=== PATIENT | female | born 1955 | race Caucasian/White ===

== ENCOUNTER → 2020-11-27 17:21 | Outpatient (CLI) | payer OTHER, SELFPAY ==
--- NOTE | 2020-11-27 | DI.MRI.S_ITS ---
PROCEDURE: MR ANKLE RT WO CON INDICATIONS: PAIN IN RT ANKKLE AND JOINTS OF RT FOOT TECHNIQUE: Noncontrast sagittal T1 spin echo and T2 fast spin echo with fat saturation, axial proton density fast spin echo and T2 fast spin echo with fat saturation, coronal T1 spin echo and T2 fast spin echo with fat saturation through the ankle/hindfoot. COMPARISON: None. FINDINGS: Image quality: Diagnostic. Bones and joints: There is a mildly comminuted fracture of the calcaneus along the subtalar joint, with mild impaction along the posterior facet. There is associated mild bone marrow edema. The fracture extends to the subtalar joint as well as the calcaneocuboid articulation. Remaining visualized osseous structures appear intact. 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 There is a small tibiotalar joint effusion. Medial structures: The posterior tibialis, flexor digitorum longus, and flexor hallucis longus tendons are intact with a small amount of tenosynovial fluid. The posterior tibial neurovascular bundle appears normal within the tarsal tunnel, without extrinsic mass effect. The deltoid and spring ligament components appear intact. The Lateral structures: The anterior talofibular, calcaneofibular, and posterior talofibular ligaments appear mildly thickened compatible sequelae of mild to moderate sprains.. More superiorly, the anterior and posterior tibiofibular ligaments appear intact, as is the intermalleolar ligament. The tibiofibular syndesmosis is normal in width at 2 mm or less. The peroneus longus and brevis tendons demonstrate normal location and morphology. Adjacent bony peroneal tubercle and retrotrochlear prominence are normal in size. The sinus tarsi demonstrates normal fatty signal, without edema, fibrosis, or cyst formation. The calcaneonavicular and calcaneocuboid components of the bifurcate ligament appear intact. The dorsal calcaneocuboid ligament also appears intact. Anterior structures: The tibialis anterior, extensor hallucis longus, and extensor digitorum longus tendons appear intact. The dorsal talonavicular ligament appears intact. Posterior and plantar structures: Achilles tendon is intact. Medial and lateral bands of the plantar fascia are of normal thickness with mild associated edema along the plantar soft tissues proximally. No abductor digiti quinti muscle atrophy to suggest Brown neuropathy. IMPRESSION: 1. Mildly comminuted fracture of the calcaneus with mild impaction along the subtalar joint. Fracture also extends to the calcaneocuboid articulation. 2. Sequelae of prior mild to moderate sprains of the talofibular and calcaneofibular ligaments as described. 3. Small tibiotalar joint effusion. 4. 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 Dictated by: Silviano Noriega M.D. on 11/28/2020 at 10:41 Approved by: Silviano Noriega M.D. on 11/28/2020 at 11:20
== END ==
PROVIDERS: Referring Provider Orthopaedic Surgery; Visit Provider Orthopaedic Surgery
DX: M25.571 Pain in right ankle and joints of right foot (principal); S92.001A Unspecified fracture of right calcaneus, initial encounter for closed fracture; X58.XXXA Exposure to other specified factors, initial encounter; M25.471 Effusion, right ankle
CPT/HCPCS: 73721